=== PATIENT | female | born 1960 | race Caucasian/White ===

== ENCOUNTER 2017-09-26 19:49 | Emergency (ER) | payer MEDICARE, MEDICAID ==
[2017-09-26 20:16] VITALS: BP 117/74
--- NOTE | 2017-09-26 21:00 | EDM.PDOC ---
ED HPI GENERAL MEDICAL PROBLEM - General Chief Complaint: Lower Extremity Injury/Pain Stated Complaint: COLOR OF LEGS Time Seen by Provider: 09/26/17 21:00 Source of Information: Reports: Patient History Limitations: Reports: No Limitations - History of Present Illness INITIAL COMMENTS - FREE TEXT/NARRATIVE: pt arrived with some swelling in the left leg. 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 The last time was 6 years ago, Onset: Gradual, Other ( Pt has been spending alot of time cleaning a big old house and has been on her feet alot. ) Duration: Day(s):, Getting Worse Location: Reports: Lower Extremity, Left Associated Symptoms: Reports: Other ( no sob. ) - Related Data Allergies Allergy/AdvReac Type Severity Reaction Status Date / Time metformin AdvReac Diarrhea Verified 05/09/16 07:09 Home Meds: Home Meds Acetaminophen [Tylenol Extra Strength] 1,000 mg PO Q12H 12/05/15 [History] Cholecalciferol (Vitamin D3) [Vitamin D3] 1,000 units PO DAILY 12/05/15 [History ] FLUoxetine [PROzac] 20 mg PO DAILY 12/05/15 [History] Gabapentin [Neurontin] 600 mg PO DAILY 12/05/15 [History] Gabapentin [Neurontin] 900 mg PO BEDTIME 12/05/15 [History] Hydrochlorothiazide 12.5 mg PO DAILY 12/05/15 [History] Metoprolol Tartrate 100 mg PO BID 12/05/15 [History] atorvaSTATin [Lipitor] 40 mg PO BEDTIME 12/05/15 [History] Acetaminophen [Tylenol] 650 mg PO Q4H PRN #0 tablet 12/20/15 [Rx] Lisinopril 40 mg PO BEDTIME 12/22/15 [History] Warfarin [Coumadin] 1 mg PO MOFR 12/22/15 [History] Warfarin [Coumadin] 2 mg PO SUTUWETHSA 12/22/15 [History] Levothyroxine Sodium [Synthroid] 125 mcg PO DAILY 05/09/16 [History] Dapagliflozin Propanediol [Farxiga] 10 mg PO DAILY 05/10/16 [History] Exenatide Microspheres [Bydureon Pen] 2 mg IM WEEKLY 09/26/17 [History] Past Medical History HEENT History: Reports: Impaired Vision, Sinusitis Cardiovascular History: Reports: Aneurysm, Bypass, High Cholesterol, Hypertension, PVD, Stents Respiratory History: Reports: Asthma Gastrointestinal History: Reports: Colon Polyp, GERD, Hiatal Hernia Other Gastrointestinal History: ABD HERNIA Genitourinary History: Reports: Diabetic Nephropathy, Renal Calculus CAFETERIA 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: Musculoskeletal History: Reports: Arthritis, Fibromyalgia, Neck Pain, Chronic Neurological History: Reports: Neuropathy, Diabetic Psychiatric History: Reports: Anxiety, Depression Endocrine/Metabolic History: Reports: Diabetes, Type II, Hypothyroidism, Obesity /BMI 30+ Hematologic History: Reports: None Immunologic History: Reports: None Oncologic (Cancer) History: Reports: Thyroid Dermatologic History: Reports: None - Infectious Disease History Infectious Disease History: Reports: Chicken Pox, MRSA, Mumps - Past Surgical History Head Surgeries/Procedures: Reports: None HEENT Surgical History: Reports: Oral Surgery Cardiovascular Surgical History: Reports: AAA Repair, Aneurysm, Coronary Artery Stent, Vascular Surgery Respiratory Surgical History: Reports: None GI Surgical History: Reports: Cholecystectomy, Colonoscopy, EGD, Smita Fundoplication, Other (See Below) Female Surgical History: Reports: Tubal Ligation Endocrine Surgical History: Reports: Thyroid Biopsy, Thyroidectomy Other Oncologic Surgeries/Procedures: current Dermatological Surgical History: Reports: None Social & Family History - Family History Family Medical History: Noncontributory HEENT: Reports: Cataract, Impaired Vision Cardiac: Reports: Hypertension, [place] Respiratory: Reports: None GI: Reports: Cholelithiasis : Reports: None OBGYN: Reports: Musculoskeletal: Reports: Fibromyalgia Neurological: Reports: Other (See Below) Other Neurological Family History: SISTER WITH EPILEPSY Psychiatric: Reports: None Endocrine/Metabolic: Reports: Diabetes, type II Hematologic: Reports: None Immunologic: Reports: None Dermatologic: Reports: None Oncologic: Reports: None - Tobacco Use Smoking Status *Q: Current Every Day Smoker Years of Tobacco use: 45 Packs/Tins Daily: 1 Used Tobacco, but Quit: No Month Tobacco Last Used: NOVEMBER Second Hand Smoke Exposure: Yes - Caffeine Use Caffeine Use: Reports: Coffee - Alcohol Use Days Per Week of Alcohol Use: 0 - Recreational Drug Use Recreational Drug Use: No Review of Systems - Review of Systems Review Of Systems: See Below Constitutional: Reports: No Symptoms Eyes: Reports: No Symptoms Ears: Reports: No Symptoms Nose: Reports: No Symptoms Mouth/Throat: Reports: No Symptoms Respiratory: Reports: No Symptoms Cardiovascular: Reports: No Symptoms GI/Abdominal: Reports: No Symptoms Musculoskeletal: Reports: Other ( swelling of the left leg. ) Skin: Reports: No Symptoms Neurological: Reports: No Symptoms ED EXAM, GENERAL - Physical Exam Exam: See Below Free Text/Narrative:: pt has slight redness and very slight swelling in the left lower leg. Exam Limited By: No Limitations General Appearance: Alert, No Apparent Distress, Anxious Ears: Normal TMs Nose: Normal Inspection Throat/Mouth: Normal Inspection Head: Atraumatic Neck: Normal Inspection Respiratory/Chest: No Respiratory Distress Cardiovascular: Regular Rate, Rhythm GI/Abdominal: Soft, Non-Tender (Female) Exam: Deferred Rectal (Female) Exam: Deferred Back Exam: Normal Inspection Extremities: Other (pt has slight edema in the left lower She has mild calf tenderness. She has a normal Ddimer. Her us of her leg is neg. .) Neurological: Alert, Oriented, Normal Cognition Psychiatric: Normal Affect Course - Vital Signs Last Recorded V/S: Last Vital Signs Temp 36.5 C 09/26/17 20:15 Pulse 73 09/26/17 20:15 Resp 16 09/26/17 20:15 BP 117/74 09/26/17 20:15 Pulse Ox 94 L 09/26/17 20:15 - Orders/Labs/Meds Orders: Active Orders 24 hr Category Date Time Status VL Duplex Lwr Ext Veins Ltd Lt [US] Stat Exams 09/26/17 20:58 Ordered Labs: Laboratory Tests 09/26/17 09/26/17 Range/Units 21:00 21:00 WBC 8.6 (4.5-11.0) K/uL RBC 4.68 (3.30-5.50) M/uL Hgb 15.1 H (12.0-15.0) g/dL Hct 42.9 (36.0-48.0) % MCV 92 (80-98) fL MCH 32 H (27-31) pg MCHC 35 (32-36) % Plt Count 256 (150-400) K/uL Neut % (Auto) 59 (36-66) % Lymph % (Auto) 30 (24-44) % [place] % (Auto) 8 H (2-6) % Eos % (Auto) 2 (2-4) % Baso % (Auto) 0 (0-1) % D-Dimer, Quantitative 341 (0.0-400.0) ng/mL - Re-Assessments/Exams Free Text/Narrative Re-Assessment/Exam: 09/26/17 22:11 Us of the leg was neg. Departure - Departure Time of Disposition: 22:12 Disposition: Home, Self-Care 01 Condition: Fair Clinical Impression: Edema of left lower extremity - Discharge Information Referrals: Ino Lopez Sr, MD [Primary Care Provider] - Forms: ED Department Discharge Care Plan Goals: avoid being on her feet so much, cont coumadin, tylenol for discomfort. - My Orders Last 24 Hours: My Active Orders 09/26/17 20:58 VL Duplex Lwr Ext Veins Ltd Lt [US] Stat - Assessment/Plan Last 24 Hours: My Active Orders 09/26/17 20:58 VL Duplex Lwr Ext Veins Ltd Lt [US] Stat
--- NOTE | 2017-09-29 10:03 | US ---
No DVT within the deep venous system.
== END 2017-09-26 22:27 | disposition home or self-care (01) ==
LOC: JP.ED 19:49
DX: R60.0 Localized edema (principal); I10 Essential (primary) hypertension; E11.21 Type 2 diabetes mellitus with diabetic nephropathy; E03.9 Hypothyroidism, unspecified; E78.00 Pure hypercholesterolemia, unspecified; E11.40 Type 2 diabetes mellitus with diabetic neuropathy, unspecified; Z88.8 Allergy status to other drugs, medicaments and biological substances; Z79.01 Long term (current) use of anticoagulants; Z79.899 Other long term (current) drug therapy; F17.210 Nicotine dependence, cigarettes, uncomplicated
CPT/HCPCS: 36415; 85025; 85379; 93971-26-LT; 93971-LT; 99283; 99284-25

== ENCOUNTER 2020-02-25 17:57 | Emergency (ER) | payer MEDICARE, MEDICAID ==
--- NOTE | 2020-02-25 19:58 | EDM.PDOC ---
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 The patient's symptoms worsened today and she decided to come into the ED. She has a poor appetite. She has been getting some fluids and however not as much as usual. She has increased thirst. She denies increased urination. Her stools have been loose but only once or twice a day. She denies any blood. She has had a cholecystectomy in the past. She still has her appendix and uterus. She denies alcohol use, THC and street drug use. Lower Abdomen Pain Score (Numeric/FACES): 7 - Related Data Allergies Allergy/AdvReac Type Severity Reaction Status Date / Time cyclobenzaprine Allergy Dizziness Verified 02/25/20 19:18 [From Flexeril] tizanidine Allergy Dizziness Verified 02/25/20 19:18 metformin AdvReac Diarrhea Verified 02/25/20 19:18 Home Meds: Home Meds Cholecalciferol (Vitamin D3) [Vitamin D3] 1,000 units PO DAILY 12/05/15 [History] FLUoxetine [PROzac] 20 mg PO DAILY 12/05/15 [History] Metoprolol Tartrate 100 mg PO BID 12/05/15 [History] atorvaSTATin [Lipitor] 40 mg PO BEDTIME 12/05/15 [History] hydroCHLOROthiazide [Hydrochlorothiazide] 12.5 mg PO DAILY 12/05/15 [History] Acetaminophen [Tylenol] 650 mg PO Q4H PRN #0 tablet 12/20/15 [Rx] Lisinopril 40 mg PO BEDTIME 12/22/15 [History] Levothyroxine Sodium [Synthroid] 125 mcg PO DAILY 05/09/16 [History] Dapagliflozin Propanediol [Farxiga] 10 mg PO DAILY 05/10/16 [History] Exenatide Microspheres [Bydureon Pen] 2 mg IM WEEKLY 09/26/17 [History] Gabapentin [Neurontin] 400 mg PO DAILY 01/19/19 [History] Gabapentin [Neurontin] 800 mg PO BEDTIME 02/25/20 [History] Warfarin [Coumadin] 2 mg PO DAILY 02/25/20 [History] Past Medical History HEENT History: Reports: Impaired Vision, Sinusitis Cardiovascular History: Reports: Aneurysm, Bypass, High Cholesterol, Hypertension, PVD, Stents Respiratory History: Reports: Asthma Gastrointestinal History: Reports: Colon Polyp, GERD, Hiatal Hernia Other Gastrointestinal History: ABD HERNIA Genitourinary History: Reports: Diabetic Nephropathy, 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: Musculoskeletal History: Reports: Arthritis, Fibromyalgia, Neck Pain, Chronic Neurological History: Reports: Neuropathy, Diabetic Psychiatric History: Reports: Anxiety, Depression Endocrine/Metabolic History: Reports: Diabetes, Type II, Hypothyroidism, Obesity/BMI 30+ Hematologic History: Reports: None Immunologic History: Reports: None Oncologic (Cancer) History: Reports: Thyroid Dermatologic History: Reports: None - Infectious Disease History Infectious Disease History: Reports: Chicken Pox, Measles, Mumps - Past Surgical History HEENT Surgical History: Reports: Oral Surgery Cardiovascular Surgical History: Reports: AAA Repair, Aneurysm, Coronary Artery Stent, Vascular Surgery GI Surgical History: Reports: Cholecystectomy, Colonoscopy, EGD, Smita Fundopl ication, Other (See Below) Female Surgical History: Reports: Tubal Ligation Endocrine Surgical History: Reports: Thyroid Biopsy, Thyroidectomy Other Oncologic Surgeries/Procedures: current Dermatological Surgical History: Reports: None Social & Family History - Family History Family Medical History: Noncontributory HEENT: Reports: Cataract, Impaired Vision Cardiac: Reports: Hypertension, [place] Respiratory: Reports: None GI: Reports: Cholelithiasis : Reports: None OBGYN: Reports: Musculoskeletal: Reports: Fibromyalgia Neurological: Reports: Other (See Below) Other Neurological Family History: SISTER WITH EPILEPSY Psychiatric: Reports: None Endocrine/Metabolic: Reports: Diabetes, type II Hematologic: Reports: None Immunologic: Reports: None Dermatologic: Reports: None Oncologic: Reports: None - Tobacco Use Smoking Status *Q: Current Every Day Smoker Years of Tobacco use: 45 Packs/Tins Daily: 0.5 Used Tobacco, but Quit: No Second Hand Smoke Exposure: Yes - Caffeine Use Caffeine Use: Reports: Coffee - Recreational Drug Use Recreational Drug Use: No ED ROS GENERAL - Review of Systems Review Of Systems: See Below Constitutional: Reports: Fever, Chills HEENT: Reports: No Symptoms Respiratory: Reports: No Symptoms Cardiovascular: Reports: No Symptoms Endocrine: Denies: Polydypsia, Polyuria GI/Abdominal: Reports: Abdominal Pain, Diarrhea, Decreased Appetite, Nausea, Vomiting : Reports: No Symptoms Skin: Reports: No Symptoms Neurological: Reports: No Symptoms ED EXAM, GI/ABD - Physical Exam Exam: See Below Exam Limited By: Altered Mental Status General Appearance: Alert, WD/WN, Moderate Distress, Other (Mucous membranes are moist skin turgor is decreased. Central capillary refill is decreased as well. Her heart rate is in the mid 90s. Respirations are normal. She appears mildlymoderately dehydrated.) Eyes: Bilateral: Normal Appearance (No scleral icterus.) Nose: Normal Inspection Throat/Mouth: Normal Inspection Neck: Normal Inspection, Supple, Non-Tender Respiratory/Chest: No Respiratory Distress, Lungs Clear, Normal Breath Sounds, Chest Non-Tender Cardiovascular: Normal Peripheral Pulses, Regular Rate, Rhythm, No Gallop, No Murmur GI/Abdominal Exam: Normal Bowel Sounds (She has guarding right lower quadrant. She also has some rigidity. Bowel sounds are normal in all quadrants. No masses were noted. She has tenderness percussion particular on the right side.) Extremities: Normal Inspection, Normal Range of Motion Neurological: Alert, Oriented, Normal Cognition Skin Exam: No: Jaundice Course - Vital Signs Text/Narrative:: This patient presents to the emergency department with several day history of fever, chills, nausea, vomiting and diarrhea. She also has abdominal pain. Her symptoms worsened today with the pain. Her vital signs are stable. Her abdomen was tender on palpation. CT scan of the abdomen pelvis with contrast shows a splenic infarct. Her labs reveal elevated transaminase and lipase. Her bilirubin is slightly elevated. INR is pending. Chest x-ray appears normal by my interpretation. ECG shows no acute is by my interpretation. COVID-19 test is pending. The patient is hypokalemic at 3.0 and was given supplemental potassium. She was given IV fluids, fentanyl and Zofran for pain. The case was discussed with Dr. Singh a hospitalist at [facility] and he accepted the patient transfer. 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 The patient is hemodynamically stable. Her CODE STATUS is full. She agrees with this plan. She is being transported to [place] by [facility]. Last Recorded V/S: Last Vital Signs Temp 36.1 C 02/25/20 19:33 Pulse 88 02/25/20 21:33 Resp 16 02/25/20 21:33 BP 118/59 L 02/25/20 21:33 Pulse Ox 91 L 02/25/20 21:33 - Orders/Labs/Meds Orders: Active Orders 24 hr Category Date Time Status EKG Documentation Completion [RC] ASDIRECTED Care 02/25/20 20:07 Active CORONAVIRUS COVID-19, MEE Stat Lab 02/25/20 22:38 Ordered INR,PT,PROTHROMBIN TIME [COAG] Stat Lab 02/25/20 22:35 Ordered LACTIC ACID [CHEM] Stat Lab 02/25/20 22:25 Ordered Iopamidol [Isovue-300 (61%)] Med 02/25/20 20:45 Active 115 ml IV . DIRECTED Potassium Chloride [KCL 20 MEQ in Water 100 ML] 20 meq Med 02/25/20 22:25 Ordered Premix Bag 1 bag IV ONETIME Sodium Chloride 0.9% [Normal Saline] 1,000 ml Med 02/25/20 20:15 Active IV ASDIRECTED Sodium Chloride 0.9% [Normal Saline] 1,000 ml Med 02/25/20 22:45 Ordered IV ASDIRECTED Sodium Chloride 0.9% [Normal Saline] 80 ml Med 02/25/20 20:45 Active IV ASDIRECTED Sodium Chloride 0.9% [Saline Flush] Med 02/25/20 20:35 Active 10 ml FLUSH ASDIRECTED PRN EKG 12 Lead [EK] Stat Ther 02/25/20 20:06 Ordered Medication Orders Sodium Chloride (Normal Saline) 1,000 mls @ 1,000 mls/hr IV ASDIRECTED [facility] Last Admin: 02/25/20 20:34 Dose: 1,000 mls/hr Documented by: ALEK Sodium Chloride (Normal Saline) 80 mls @ 3 mls/sec IV ASDIRECTED EVIE Last Admin: 02/25/20 20:58 Dose: 3 mls/sec Documented by: PADMINI Potassium Chloride 20 meq/ (Premix) 100 mls @ 50 mls/hr IV ONETIME ONE Stop: 02/26/20 00:24 Last Admin: 02/25/20 22:51 Dose: 50 mls/hr Documented by: SHAVON Sodium Chloride (Normal Saline) 1,000 mls @ 1,000 mls/hr IV ASDIRECTED EVIE Iopamidol (Isovue-300 (61%)) 115 ml IV . DIRECTED EVIE Last Admin: 02/25/20 20:57 Dose: 115 ml Documented by: PADMINI Sodium Chloride (Saline Flush) 10 ml FLUSH ASDIRECTED PRN PRN Reason: Keep Vein Open Last Admin: 02/25/20 20:58 Dose: 10 ml Documented by: PADMINI Labs: Laboratory Tests 02/25/20 02/25/20 02/25/20 Range/Units 20:23 20:23 20:53 WBC 8.8 (4.5-11.0) K/uL RBC 4.89 (3.30-5.50) M/uL Hgb 15.3 H (12.0-15.0) g/dL Hct 42.7 (36.0-48.0) % MCV 87 (80-98) fL MCH 31 (27-31) pg MCHC 36 (32-36) % Plt Count 90 L (150-400) K/uL Neut % (Auto) 84 H (36-66) % Lymph % (Auto) 11 L (24-44) % [place] % (Auto) 5 (2-6) % Eos % (Auto) 0 L (2-4) % Baso % (Auto) 1 (0-1) % Sodium 128 L (140-148) mmol/L Potassium 3.0 L (3.6-5.2) mmol/L Chloride 90 L (100-108) mmol/L Carbon Dioxide 27 (21-32) mmol/L Anion Gap 14.0 (5.0-14.0) mmol/L BUN 16 (7-18) mg/dL Creatinine 0.9 (0.6-1.0) mg/dL Est Cr Clr Drug Dosing 56.68 mL/min Estimated GFR (MDRD) > 60 (>60) Glucose 110 H (74-106) mg/dL Calcium 8.2 L (8.5-10.1) mg/dL Total Bilirubin 1.4 H (0.2-1.0) mg/dL AST 103 H (15-37) U/L ALT 114 H (12-78) U/L Alkaline Phosphatase 171 H (46-116) U/L C-Reactive Protein 17.90 H (0.0-0.3) mg/dL Total Protein 6.8 (6.4-8.2) g/dL Albumin 2.5 L (3.4-5.0) g/dL Globulin 4.3 H (2.3-3.5) g/dL Albumin/Globulin Ratio 0.6 L (1.2-2.2) Lipase 151 (73-393) U/L Urine Color Yellow (YELLOW) Urine Appearance Slightly cloudy A (CLEAR) Urine pH 6.0 (5.0-8.0) Ur Specific [place] 1.025 (1.008-1.030) Urine Protein 100 H (NEGATIVE) mg/dL Urine Glucose (UA) 500 H (NEGATIVE) mg/dL Urine Ketones 40 H (NEGATIVE) mg/dL Urine Occult Blood Small H (NEGATIVE) Urine Nitrite Negative (NEGATIVE) Urine Bilirubin Small H (NEGATIVE) Urine Urobilinogen 0.2 (0.2-1.0) EU/dL Ur Leukocyte Esterase Negative (NEGATIVE) Urine RBC 0-5 (0-5) Urine WBC 0-5 (0-5) Ur Epithelial Cells Few Amorphous Sediment Few Urine Bacteria Few Urine Mucus Not seen Urine Other See note Meds: Medications Generic Name Dose Route Start Last Admin Trade Name Jonah PRN Reason Stop Dose Admin Sodium Chloride 1,000 mls @ 1,000 mls/hr 02/25/20 20:15 02/25/20 20:34 Normal Saline IV 1,000 mls/hr ASDIRECTED EVIE Administration Sodium Chloride 80 mls @ 3 mls/sec 02/25/20 20:45 02/25/20 20:58 Normal Saline IV 3 mls/sec ASDIRECTED EVIE Administration Potassium Chloride 20 meq/ 100 mls @ 50 mls/hr 02/25/20 22:25 02/25/20 22:51 Premix IV 02/26/20 00:24 50 mls/hr ONETIME ONE Administration Sodium Chloride 1,000 mls @ 1,000 mls/hr 02/25/20 22:45 Normal Saline IV ASDIRECTED EVIE Iopamidol 115 ml 02/25/20 20:45 02/25/20 20:57 Isovue-300 (61%) IV 115 ml . DIRECTED EVIE Administration Sodium Chloride 10 ml 02/25/20 20:35 02/25/20 20:58 Saline Flush FLUSH 10 ml ASDIRECTED PRN Administration Keep Vein Open Discontinued Medications Generic Name Dose Route Start Last Admin Trade Name Freq PRN Reason Stop Dose Admin Fentanyl 50 mcg 02/25/20 19:59 02/25/20 20:36 Sublimaze IVPUSH 02/25/20 20:00 50 mcg ONETIME ONE Administration Lidocaine HCl 2 ml 02/25/20 22:41 02/25/20 22:52 Xylocaine-Mpf 1% INJECT 02/25/20 22:42 2 ml ONETIME ONE Administration Lidocaine HCl Confirm 02/25/20 22:38 02/25/20 22:52 Xylocaine-Mpf 1% Administered 02/25/20 22:39 Not Given Dose 5 ml .ROUTE .STK-MED ONE Ondansetron HCl 4 mg 02/25/20 20:00 02/25/20 20:35 Zofran IVPUSH 02/25/20 20:01 4 mg ONETIME ONE Administration Departure - Departure Time of Disposition: 22:53 Disposition: DC/Tfer to Acute Hospital 02 Condition: Good Clinical Impression: Splenic infarct - Discharge Information *PRESCRIPTION DRUG MONITORING PROGRAM REVIEWED*: No *COPY OF PRESCRIPTION DRUG MONITORING REPORT IN PATIENT EDISON: No Referrals: PCP,None [Primary Care Provider] - Forms: ED Department Discharge Care Plan Goals: Transfer to [facility] Sepsis Event Note (ED) - Evaluation Sepsis Screening Result: Possible Sepsis Risk - Focused Exam Vital Signs: Vital Signs Temp Pulse Resp BP Pulse Ox 02/25/20 21:33 88 16 118/59 L 91 L 02/25/20 20:25 90 16 131/59 L 93 L 02/25/20 19:33 36.1 C 100 22 H 129/64 98 02/25/20 18:59 36.1 C 100 22 H 129/64 98 - My Orders Last 24 Hours: My Active Orders 02/25/20 20:06 EKG 12 Lead [EK] Stat 02/25/20 20:07 EKG Documentation Completion [RC] ASDIRECTED 02/25/20 20:15 Sodium Chloride 0.9% [Normal Saline] 1,000 ml IV ASDIRECTED 02/25/20 20:35 Sodium Chloride 0.9% [Saline Flush] 10 ml FLUSH ASDIRECTED PRN 02/25/20 20:45 Iopamidol [Isovue-300 (61%)] 115 ml IV . DIRECTED Sodium Chloride 0.9% [Normal Saline] 80 ml IV ASDIRECTED 02/25/20 22:25 LACTIC ACID [CHEM] Stat Potassium Chloride [KCL 20 MEQ in Water 100 ML] 20 meq Premix Bag 1 bag IV ONETIME 02/25/20 22:35 INR,PT,PROTHROMBIN TIME [COAG] Stat 02/25/20 22:38 CORONAVIRUS COVID-19, MEE Stat 02/25/20 22:45 Sodium Chloride 0.9% [Normal Saline] 1,000 ml IV ASDIRECTED - Assessment/Plan Last 24 Hours: My Active Orders 02/25/20 20:06 EKG 12 Lead [EK] Stat 02/25/20 20:07 EKG Documentation Completion [RC] ASDIRECTED 02/25/20 20:15 Sodium Chloride 0.9% [Normal Saline] 1,000 ml IV ASDIRECTED 02/25/20 20:35 Sodium Chloride 0.9% [Saline Flush] 10 ml FLUSH ASDIRECTED PRN 02/25/20 20:45 Iopamidol [Isovue-300 (61%)] 115 ml IV . DIRECTED Sodium Chloride 0.9% [Normal Saline] 80 ml IV ASDIRECTED 02/25/20 22:25 LACTIC ACID [CHEM] Stat Potassium Chloride [KCL 20 MEQ in Water 100 ML] 20 meq Premix Bag 1 bag IV ONETIME 02/25/20 22:35 INR,PT,PROTHROMBIN TIME [COAG] Stat 02/25/20 22:38 CORONAVIRUS COVID-19, MEE Stat 02/25/20 22:45 Sodium Chloride 0.9% [Normal Saline] 1,000 ml IV ASDIRECTED
[2020-02-25] MEDS ORDERED: fentaNYL 100 MCG/2 ML SDV IVPUSH ONE (19:59)
[2020-02-25] MEDS ORDERED: Ondansetron 4 MG/2 ML SDV IVPUSH ONE (20:00)
[2020-02-25] MEDS ORDERED: Sodium Chloride 0.9% 1,000 ML IV SCH ×2 (20:15→22:45)
[2020-02-25] MEDS ORDERED: Sodium Chloride 0.9% 10 ML Syringe FLUSH PRN (20:35)
[2020-02-25] MEDS ORDERED: Iopamidol 612 MG/ML 150 ML Bottle IV SCH (20:45)
[2020-02-25] MEDS ORDERED: Sodium Chloride 0.9% 80 ML IV SCH (20:45)
--- NOTE | 2020-02-25 21:39 | CRLCR ---
HISTORY: Fever. TECHNIQUE: One view of the chest. COMPARISON: 12/13/2015. FINDINGS: There is platelike opacity within the left lung adjacent to the left heart border likely reflecting an area platelike atelectasis. The right lung appears clear of focal opacity. No pneumothorax or pleural effusion. Cardiac size within normal limits. IMPRESSION: Platelike opacity within the left lung adjacent to the left heart border likely reflecting platelike atelectasis. Dictated by Roney Malloy MD @ 02/25/2020 9:36:31 PM Dictated by: Roney Malloy MD @ 02/25/2020 21:36:38 (Electronically Signed)
--- NOTE | 2020-02-25 21:47 | CRLCT ---
HISTORY: Right lower quadrant abdominal pain. TECHNIQUE: Intravenous contrast enhanced CT of the abdomen and pelvis. 150 mL of Isovue-300 intravenous contrast was administered. COMPARISON: Ultrasound 05/26/2019. FINDINGS: There is no liver mass. Mild prominence of the biliary system may relate to postcholecystectomy reservoir effect. There are a few areas of decreased wedge-shaped splenic attenuation which likely reflect areas of splenic infarction. Underlying splenomegaly is present. Mild thickening/lobulated the adrenal glands. No focal pancreatic abnormality or acute peripancreatic inflammatory change. - On the left, there are several mildly complex cystic renal lesions. One at the superior pole of the kidney measures approximately 9.1 cm in size with thin septal calcifications. There are several cystic lesions at the inferior pole of the left kidney including one which demonstrates some peripheral wall calcifications. Given the mild complexity, imaging surveillance is recommended. No corrie nodularity is seen. On the right, there are multiple fluid density renal lesions which likely represent cysts. Bilaterally, there are sub cm low-density renal lesions which are too small to characterize but could represent small cysts. There is no right-sided no hydronephrosis. No obstructive urinary calculus. Urinary bladder is nondistended. - No small bowel obstruction. No appendicitis. No diverticulitis. - There are several wide-mouth ventral abdominal wall hernias. - There is an abdominal aortic graft which appears patent. - Areas of platelike atelectasis and/or scarring within the lung bases. - Degenerative changes of the spine. No acute fractures. IMPRESSION: 1. Small areas of splenic infarction in the setting of splenomegaly. 2. No appendicitis, bowel obstruction or diverticulitis. 3. Prior cholecystectomy. Dilatation of the biliary system may relate to postcholecystectomy reservoir effect. 4. Several mildly complex cystic left renal lesions with wall and septal calcifications. While these may reflect mildly complex cysts, imaging surveillance with renal CT is recommended for these mildly complex cystic lesions. 5. Patent abdominal aortic graft. 6. Several wide-mouth ventral abdominal wall hernias. Dictated by Roney Malloy MD @ 02/25/2020 9:46:32 PM Please note that all CT scans at this facility use dose modulation, iterative reconstruction, and/or weight-based dosing when appropriate to reduce radiation dose to as low as reasonably achievable. Dictated by: Roney Malloy MD @ 02/25/2020 21:46:37 (Electronically Signed)
[2020-02-25] MEDS ORDERED: Potassium Chloride 20 MEQ in Premix Bag 1 BAG IV ONE (22:25)
[2020-02-25 23:03] VITALS: BP 119/78; PULSE 103
== END 2020-02-25 23:37 ==
LOC: JP.ED 17:57
DX: D73.5 Infarction of spleen (principal); I10 Essential (primary) hypertension; E66.9 Obesity, unspecified; Z68.28 Body mass index [BMI] 28.0-28.9, adult; E03.9 Hypothyroidism, unspecified; E11.51 Type 2 diabetes mellitus with diabetic peripheral angiopathy without gangrene; E11.21 Type 2 diabetes mellitus with diabetic nephropathy; E78.00 Pure hypercholesterolemia, unspecified; E11.40 Type 2 diabetes mellitus with diabetic neuropathy, unspecified; F41.9 Anxiety disorder, unspecified; F32.9 Major depressive disorder, single episode, unspecified; Z79.01 Long term (current) use of anticoagulants; Z88.8 Allergy status to other drugs, medicaments and biological substances; Z79.899 Other long term (current) drug therapy; Z95.5 Presence of coronary angioplasty implant and graft; Z79.84 Long term (current) use of oral hypoglycemic drugs
CPT/HCPCS: 36415; 71045; 74177; 80053; 81001; 83605; 83690; 85025; 85610; 86140; 93005; 96361; 96365; 96375; 99285; J2001; J2405; J3010; J3480; J7030; J7050; Q9967; U0002

== ENCOUNTER 2021-02-24 19:53 | Emergency (ER) | payer MEDICARE, MEDICAID ==
[2021-02-24 20:12] VITALS: BP 103/63; PULSE 78
--- NOTE | 2021-02-24 21:13 | EDM.PDOC ---
ED HPI GENERAL MEDICAL PROBLEM - General Chief Complaint: General Stated Complaint: LYMES? 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 Over the past few days she has had similar symptoms with but generalized body aches, possible low-grade fevers, and had 2 episodes of nausea and vomiting yesterday. No vomiting today but she wants to be checked for Lyme's and started on antibiotics today to avoid a prolonged course. She has had her Covid vaccinations. Her son thought she had a rash a few days ago but that is resolved. Some mild generalized joint discomfort, no focal inflammation or swelling. Onset: Gradual Duration: Day(s): (2 to 3 days of illness) Location: Reports: Generalized Associated Symptoms: Reports: Cough (Mild cough), Fever/Chills, Loss of Appetite, Malaise, Nausea/Vomiting, Weakness. Denies: Confusion, Chest Pain, Shortness of Breath body Pain Score (Numeric/FACES): 1 - Related Data Allergies Allergy/AdvReac Type Severity Reaction Status Date / Time cyclobenzaprine Allergy Dizziness Verified 02/24/21 20:26 [From Flexeril] tizanidine Allergy Dizziness Verified 02/24/21 20:26 metformin AdvReac Diarrhea Verified 02/24/21 20:26 Home Meds: Home Meds FLUoxetine [PROzac] 20 mg PO DAILY 12/05/15 [History] Metoprolol Tartrate 100 mg PO BID 12/05/15 [History] atorvaSTATin [Lipitor] 40 mg PO BEDTIME 12/05/15 [History] hydroCHLOROthiazide [Hydrochlorothiazide] 12.5 mg PO DAILY 12/05/15 [History] Acetaminophen [Tylenol] 650 mg PO Q4H PRN #0 tablet 12/20/15 [Rx] Lisinopril 40 mg PO BEDTIME 12/22/15 [History] Levothyroxine Sodium [Synthroid] 125 mcg PO DAILY 05/09/16 [History] Dapagliflozin Propanediol [Farxiga] 10 mg PO DAILY 05/10/16 [History] Exenatide Microspheres [Bydureon Pen] 2 mg IM WEEKLY 09/26/17 [History] Gabapentin [Neurontin] 400 mg PO DAILY 01/19/19 [History] Gabapentin [Neurontin] 800 mg PO BEDTIME 02/25/20 [History] Warfarin [Coumadin] 2 mg PO DAILY 02/25/20 [History] Past Medical History HEENT History: Reports: Impaired Vision, Sinusitis Cardiovascular History: Reports: Aneurysm, Bypass, High Cholesterol, Hypertension, PVD, Stents Respiratory History: Reports: Asthma Gastrointestinal History: Reports: Colon Polyp, GERD, Hiatal Hernia Other Gastrointestinal History: ABD HERNIA Genitourinary History: Reports: Diabetic Nephropathy, 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: Musculoskeletal History: Reports: Arthritis, Fibromyalgia, Neck Pain, Chronic Neurological History: Reports: Neuropathy, Diabetic Psychiatric History: Reports: Anxiety, Depression Endocrine/Metabolic History: Reports: Diabetes, Type II, Hypothyroidism, Obe sity/BMI 30+ Hematologic History: Reports: None Immunologic History: Reports: None Oncologic (Cancer) History: Reports: Thyroid Dermatologic History: Reports: None - Infectious Disease History Infectious Disease History: Reports: Chicken Pox, Measles, Mumps - Past Surgical History Head Surgeries/Procedures: Reports: None HEENT Surgical History: Reports: Oral Surgery Other HEENT Surgeries/Procedures: teeth extraction Cardiovascular Surgical History: Reports: AAA Repair, Aneurysm, Coronary Artery Stent, Vascular Surgery Respiratory Surgical History: Reports: None GI Surgical History: Reports: Cholecystectomy, Colonoscopy, EGD, Smita Fundoplication, Other (See Below) Other GI Surgeries/Procedures: VASCULAR BLOOD CLOTS IN ABDOMEN AND HAD SURGERY Female Surgical History: Reports: Tubal Ligation Endocrine Surgical History: Reports: Thyroid Biopsy, Thyroidectomy Neurological Surgical History: Reports: None Musculoskeletal Surgical History: Reports: None Oncologic Surgical History: Reports: None Other Oncologic Surgeries/Procedures: current Social & Family History - Family History Family Medical History: No Pertinent Family History HEENT: Reports: Cataract, Impaired Vision Cardiac: Reports: Hypertension, [place] Respiratory: Reports: None GI: Reports: Cholelithiasis : Reports: None OBGYN: Reports: Musculoskeletal: Reports: Fibromyalgia Neurological: Reports: Other (See Below) Other Neurological Family History: SISTER WITH EPILEPSY Psychiatric: Reports: None Endocrine/Metabolic: Reports: Diabetes, type II Hematologic: Reports: None Immunologic: Reports: None Dermatologic: Reports: None Oncologic: Reports: None - Tobacco Use Tobacco Use Status *Q: Current Every Day Tobacco User Years of Tobacco use: 40 Packs/Tins Daily: 0.5 - Caffeine Use Caffeine Use: Reports: Coffee - Recreational Drug Use Recreational Drug Use: No ED ROS GENERAL - Review of Systems Review Of Systems: See Below Constitutional: Reports: Fever, Chills, Malaise HEENT: Reports: No Symptoms Respiratory: Reports: Cough (Dry mild cough, no productive sputum). Denies: Shortness of Breath Cardiovascular: Denies: Chest Pain GI/Abdominal: Reports: Diarrhea (Several episodes of diarrhea over the past 2 days, none today, no vomiting today either), Nausea, Vomiting : Reports: No Symptoms Musculoskeletal: Reports: Joint Pain (Generalized mild joint pain and muscle stiffness, no objective signs), Muscle Pain Skin: Reports: Other (Some mild sunburn on the back) Neurological: Reports: Weakness. Denies: Headache ED EXAM, GENERAL - Physical Exam Exam: See Below Exam Limited By: No Limitations General Appearance: Alert, No Apparent Distress Eye Exam: Bilateral Eye: Normal Inspection Head: Atraumatic Neck: Supple, Non-Tender Respiratory/Chest: Lungs Clear Cardiovascular: Regular Rate, Rhythm. No: Tachycardia GI/Abdominal: Soft, Non-Tender Extremities: Normal Inspection, Other (No objective joint pain or swelling of the extremities) Neurological: Alert, Oriented, No Motor/Sensory Deficits Psychiatric: Normal Affect, Normal Mood Skin Exam: Warm, Dry Course - Vital Signs Last Recorded V/S: Last Vital Signs Temp 97.6 F 02/24/21 20:17 Pulse 78 02/24/21 20:17 Resp 14 02/24/21 20:17 BP 103/63 02/24/21 20:17 Pulse Ox 94 L 02/24/21 20:17 - Orders/Labs/Meds Orders: Active Orders 24 hr Category Date Time Status BABESIA MICROTI ANTIBODY PANEL Urgent Lab 02/24/21 21:00 Received HUMAN GRANULOCYTIC [facility] Urgent Lab 02/24/21 21:00 Received Labs: Laboratory Tests 02/24/21 Range/Units 21:00 Lyme Disease IgG Ab Negative (Negative) Lyme Disease IgM Ab Negative (Negative) - Re-Assessments/Exams Free Text/Narrative Re-Assessment/Exam: 02/24/21 21:11 Tick panel was drawn, patient was started on doxycycline 100 mg twice daily and the results of the test will be communicated with her in a few days. If she is improving she should finish the first 10 days of the doxycycline, if positive she may need an additional round of medication. If worsening despite treatment, she can return anytime for further evaluation. Departure - Departure Time of Disposition: 21:21 Disposition: Home, Self-Care 01 Clinical Impression: Nausea & vomiting Qualifiers: Vomiting type: unspecified Vomiting Intractability: non-intractable Qualified Code(s): R11.2 - Nausea with vomiting, unspecified Joint pain Qualifiers: Joint pain location: unspecified Qualified Code(s): M25.50 - Pain in unspecified joint - Discharge Information Instructions: Nausea and Vomiting, Adult, [id number], Joint Pain, [id number] Referrals: Ulises Tucker MD [Primary Care Provider] - Forms: ED Department Discharge Care Plan Goals: Take doxycycline twice daily starting tonight, and continue the medication until gone if improving. We will be in touch with you with your panel results as you may need more medication if positive. Return anytime if worsening despite treatment. Sepsis Event Note (ED) - Evaluation Sepsis Screening Result: No Definite Risk - Focused Exam Vital Signs: Vital Signs Temp Pulse Resp BP Pulse Ox 02/24/21 20:17 97.6 F 78 14 103/63 94 L 02/24/21 20:11 97.6 F 78 14 103/63 94 L - My Orders Last 24 Hours: My Active Orders 02/24/21 21:00 BABESIA MICROTI ANTIBODY PANEL Urgent [facility] GRANULOCYTIC [facility] Urgent - Assessment/Plan Last 24 Hours: My Active Orders 02/24/21 21:00 BABESIA MICROTI ANTIBODY PANEL Urgent [facility] GRANULOCYTIC [facility] Urgent
[2021-03-02 15:12] LABS: HGE IGG TITER Negative (Neg:<1:64); HGE IGM TITER Negative (Neg:<1:20)
== END 2021-02-24 21:21 | disposition home or self-care (01) ==
LOC: JP.ED 19:53
DX: R11.2 Nausea with vomiting, unspecified (principal); M25.50 Pain in unspecified joint; L55.9 Sunburn, unspecified; R19.7 Diarrhea, unspecified; E78.00 Pure hypercholesterolemia, unspecified; I10 Essential (primary) hypertension; E11.40 Type 2 diabetes mellitus with diabetic neuropathy, unspecified; E03.9 Hypothyroidism, unspecified; E66.9 Obesity, unspecified; Z68.27 Body mass index [BMI] 27.0-27.9, adult; Z88.1 Allergy status to other antibiotic agents; Z88.8 Allergy status to other drugs, medicaments and biological substances; Z79.01 Long term (current) use of anticoagulants; Z79.899 Other long term (current) drug therapy; Z72.0 Tobacco use
CPT/HCPCS: 86618; 86666; 86753; 99283

== ENCOUNTER 2021-02-25 09:26 | Emergency (ER) | payer MEDICARE, MEDICAID ==
[2021-02-25] MEDS ORDERED: Ketorolac 60 MG/2 ML SDV IM ONE (10:45)
[2021-02-25] MEDS ORDERED: Acetaminophen/oxyCODONE 325-5 MG Tab PO STA (10:46)
--- NOTE | 2021-02-25 10:52 | EDM.PDOC ---
ED HPI GENERAL MEDICAL PROBLEM - General Chief Complaint: Back Pain or Injury Stated Complaint: [facility] Time Seen by Provider: 02/25/21 10:35 Source of Information: Reports: Patient, Old Records, RN History Limitations: Reports: No Limitations - History of Present Illness INITIAL COMMENTS - FREE TEXT/NARRATIVE: 60 yo female presents with L buttocks pain that radiates down her L leg to nearly the knee. Sx's began a few days ago and are getting worse. No injury. Has had sciatica in the past, but not this bad. No leg numbness. 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 Tucker. 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 (last night without relief) Lower Back Pain Score (Numeric/FACES): 5 - Related Data Allergies Allergy/AdvReac Type Severity Reaction Status Date / Time cyclobenzaprine Allergy Dizziness Verified 02/25/21 09:31 [From Flexeril] tizanidine Allergy Dizziness Verified 02/25/21 09:31 metformin AdvReac Diarrhea Verified 02/25/21 09:31 Home Meds: Home Meds FLUoxetine [PROzac] 20 mg PO DAILY 12/05/15 [History] Metoprolol Tartrate 100 mg PO BID 12/05/15 [History] atorvaSTATin [Lipitor] 40 mg PO BEDTIME 12/05/15 [History] hydroCHLOROthiazide [Hydrochlorothiazide] 12.5 mg PO DAILY 12/05/15 [History] Acetaminophen [Tylenol] 650 mg PO Q4H PRN #0 tablet 12/20/15 [Rx] Lisinopril 40 mg PO BEDTIME 12/22/15 [History] Levothyroxine Sodium [Synthroid] 125 mcg PO DAILY 05/09/16 [History] Dapagliflozin Propanediol [Farxiga] 10 mg PO DAILY 05/10/16 [History] Exenatide Microspheres [Bydureon Pen] 2 mg IM WEEKLY 09/26/17 [History] Gabapentin [Neurontin] 400 mg PO DAILY 01/19/19 [History] Gabapentin [Neurontin] 800 mg PO BEDTIME 02/25/20 [History] Warfarin [Coumadin] 2 mg PO DAILY 02/25/20 [History] Doxycycline [Doxycycline Hyclate] 100 mg PO BID 02/25/21 [History] Past Medical History HEENT History: Reports: Impaired Vision, Sinusitis Cardiovascular History: Reports: Aneurysm, Bypass, High Cholesterol, Hypertension, PVD, Stents Respiratory History: Reports: Asthma Gastrointestinal History: Reports: Colon Polyp, GERD, Hiatal Hernia Other Gastrointestinal History: ABD HERNIA Genitourinary History: Reports: Diabetic Nephropathy, 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: Musculoskeletal History: Reports: Arthritis, Fibromyalgia, Neck Pain, Chronic Neurological History: Reports: Neuropathy, Diabetic Psychiatric History: Reports: Anxiety, Depression Endocrine/Metabolic History: Reports: Diabetes, Type II, Hypothyroidism, Obesity/BMI 30+ Hematologic History: Reports: None Immunologic History: Reports: None Oncologic (Cancer) History: Reports: Thyroid Dermatologic History: Reports: None - Infectious Disease History Infectious Disease History: Reports: Chicken Pox, Measles, Mumps - Past Surgical History Head Surgeries/Procedures: Reports: None HEENT Surgical History: Reports: Oral Surgery Other HEENT Surgeries/Procedures: teeth extraction Cardiovascular Surgical History: Reports: AAA Repair, Aneurysm, Coronary Artery Stent, Vascular Surgery Respiratory Surgical History: Reports: None GI Surgical History: Reports: Cholecystectomy, Colonoscopy, EGD, Smita Fundoplication, Other (See Below) Other GI Surgeries/Procedures: VASCULAR BLOOD CLOTS IN ABDOMEN AND HAD SURGERY Female Surgical History: Reports: Tubal Ligation Endocrine Surgical History: Reports: Thyroid Biopsy, Thyroidectomy Neurological Surgical History: Reports: None Musculoskeletal Surgical History: Reports: None Oncologic Surgical History: Reports: None Other Oncologic Surgeries/Procedures: current Social & Family History - Family History Family Medical History: No Pertinent Family History HEENT: Reports: Cataract, Impaired Vision Cardiac: Reports: Hypertension, [place] Respiratory: Reports: None GI: Reports: Cholelithiasis : Reports: None OBGYN: Reports: Musculoskeletal: Reports: Fibromyalgia Neurological: Reports: Other (See Below) Other Neurological Family History: SISTER WITH EPILEPSY Psychiatric: Reports: None Endocrine/Metabolic: Reports: Diabetes, type II Hematologic: Reports: None Immunologic: Reports: None Dermatologic: Reports: None Oncologic: Reports: None - Tobacco Use Tobacco Use Status *Q: Current Every Day Tobacco User Years of Tobacco use: 45 Packs/Tins Daily: 0.5 - Caffeine Use Caffeine Use: Reports: Coffee - Recreational Drug Use Recreational Drug Use: No ED ROS GENERAL - Review of Systems Review Of Systems: See Below Constitutional: Reports: No Symptoms Musculoskeletal: Reports: Other (L buttocks pain going down her leg) Skin: Reports: No Symptoms Neurological: Reports: Other (pain radiating down her L leg) Psychiatric: Reports: No Symptoms ED EXAM,LOWER BACK PAIN/INJURY - Physical Exam Exam: See Below Exam Limited By: No Limitations General Appearance: Alert, WD/WN, No Apparent Distress Back Exam: Normal Inspection. No: CVA Tenderness (R), CVA Tenderness (L), Paraspinal Tenderness, Vertebral Tenderness Extremities: Normal Inspection, Normal Range of Motion, Non-Tender, No Pedal Edema, Other (pain L sciatic notch, straight leg positive on the L) Neurological: Alert, CN II-XII Intact, No Motor/Sensory Deficits, Oriented x 3 Psychiatric: Normal Affect, Normal Mood Skin Exam: Warm, Dry, Intact, Normal Color, No Rash Course - Vital Signs Last Recorded V/S: Last Vital Signs Temp 36.8 C 02/25/21 09:36 Pulse 78 02/25/21 10:54 Resp 14 02/25/21 09:36 BP 114/72 02/25/21 10:54 Pulse Ox 97 02/25/21 10:54 - Orders/Labs/Meds Meds: Medications Discontinued Medications Generic Name Dose Route Start Last Admin Trade Name Devq PRN Reason Stop Dose Admin Ketorolac Tromethamine 60 mg 02/25/21 10:45 02/25/21 10:54 Ketorolac 60 Mg/2 Ml Sdv IM 02/25/21 10:46 60 mg ONETIME ONE Administration Oxycodone/Acetaminophen 1 tab 02/25/21 10:46 02/25/21 10:53 Acetaminophen/Oxycodone 325-5 Mg Tab PO 02/25/21 10:47 1 tab ONETIME STA Administration - Re-Assessments/Exams Free Text/Narrative Re-Assessment/Exam: 02/25/21 11:28 Is feeling better now, OK with going home. Departure - Departure Time of Disposition: 11:35 Disposition: Home, Self-Care 01 Condition: Fair Clinical Impression: Sciatica Qualifiers: Laterality: left Qualified Code(s): M54.32 - Sciatica, left side - Discharge Information *PRESCRIPTION DRUG MONITORING PROGRAM REVIEWED*: No *COPY OF PRESCRIPTION DRUG MONITORING REPORT IN PATIENT EDISON: No Instructions: Sciatica, [id number] Referrals: PCP,None [Primary Care Provider] - Forms: ED Department Discharge Additional Instructions: Take ibuprofen 600 mg every 6 hrs with food, next dose at 5 pm today. Add either Percocet as directed OR acetaminophen 1000 mg every 6 hrs for pain relief. See your doctor later this week for recheck. Sepsis Event Note (ED) - Evaluation Sepsis Screening Result: No Definite Risk - Focused Exam Vital Signs: Vital Signs Temp Pulse Resp BP Pulse Ox 02/25/21 10:54 78 114/72 97 02/25/21 10:23 83 136/71 95 02/25/21 09:53 75 146/73 H 93 L 02/25/21 09:36 36.8 C 77 14 142/73 H 96 02/25/21 09:26 77 142/73 H 96
[2021-02-25 10:59] VITALS: BP 114/72; PULSE 78
== END 2021-02-25 11:41 | disposition home or self-care (01) ==
LOC: JP.ED 09:26
DX: M54.42 Lumbago with sciatica, left side (principal); E78.00 Pure hypercholesterolemia, unspecified; I10 Essential (primary) hypertension; E11.9 Type 2 diabetes mellitus without complications; E03.9 Hypothyroidism, unspecified; E66.9 Obesity, unspecified; Z68.28 Body mass index [BMI] 28.0-28.9, adult; Z95.1 Presence of aortocoronary bypass graft; Z88.5 Allergy status to narcotic agent; Z88.8 Allergy status to other drugs, medicaments and biological substances; Z79.01 Long term (current) use of anticoagulants; Z79.899 Other long term (current) drug therapy; Z72.0 Tobacco use
CPT/HCPCS: 96372; 99284; A9270; J1885

== ENCOUNTER 2021-10-06 21:42 | Emergency (ER) | payer MEDICARE, MEDICAID ==
[2021-10-06 22:01] VITALS: BP 120/76; PULSE 82
[2021-10-06] MEDS ORDERED: Sodium Chloride 0.9% 10 ML Syringe FLUSH PRN (22:08)
[2021-10-06] MEDS ORDERED: HYDROmorphone 0.5 MG/0.5 ML Syringe IVPUSH ONE (22:45)
[2021-10-07] MEDS ORDERED: Iopamidol 755 Mg/ML 100 ML Bottle IV STA (00:27)
[2021-10-07] MEDS ORDERED: Sodium Chloride 0.9% 75 ML IV STA (00:27)
[2021-10-07] MEDS ORDERED: Lidocaine 5% 700 MG Patch TRDERM ONE (01:18)
== END 2021-10-07 02:02 | disposition home or self-care (01) ==
LOC: JP.ED 21:42
DX: R07.89 Other chest pain (principal); E78.00 Pure hypercholesterolemia, unspecified; I10 Essential (primary) hypertension; J45.909 Unspecified asthma, uncomplicated; K21.9 Gastro-esophageal reflux disease without esophagitis; E11.9 Type 2 diabetes mellitus without complications; E03.9 Hypothyroidism, unspecified; E66.9 Obesity, unspecified; Z68.30 Body mass index [BMI] 30.0-30.9, adult; Z79.01 Long term (current) use of anticoagulants; Z88.8 Allergy status to other drugs, medicaments and biological substances; Z79.899 Other long term (current) drug therapy; Z72.0 Tobacco use
CPT/HCPCS: 36415; 71045; 71275; 74176; 80053; 85025; 85379; 86140; 96374; 99283; 99285; A9270; J1170; Q9967

== ENCOUNTER 2022-12-17 09:31 | Emergency (ER) | payer MEDICARE, MEDICAID ==
[2022-12-17 10:44] LABS: ESTIMATED GFR 29 mL/min (>60)
[2022-12-17] MEDS ORDERED: Sodium Chloride 0.9% 1,000 ML IV SCH (11:00)
[2022-12-17] MEDS ORDERED: Sodium Chloride 0.9% 1,000 ML IV ONE (12:31)
[2022-12-17] MEDS ORDERED: Pantoprazole 40 MG Vial IVPUSH ONE (13:05)
[2022-12-17] MEDS ORDERED: Loperamide 2 MG Cap PO ONE (16:10)
[2022-12-17 17:06] VITALS: BP 125/74; PULSE 70
== END 2022-12-17 17:00 | disposition home or self-care (01) ==
LOC: JP.ED 09:31
DX: E86.0 Dehydration (principal); R19.7 Diarrhea, unspecified; E78.00 Pure hypercholesterolemia, unspecified; I10 Essential (primary) hypertension; J45.909 Unspecified asthma, uncomplicated; E11.21 Type 2 diabetes mellitus with diabetic nephropathy; E03.9 Hypothyroidism, unspecified; E66.9 Obesity, unspecified; Z68.28 Body mass index [BMI] 28.0-28.9, adult; Z88.8 Allergy status to other drugs, medicaments and biological substances; Z79.899 Other long term (current) drug therapy; Z72.0 Tobacco use
CPT/HCPCS: 36415; 76705; 80053; 81001; 82150; 83690; 85025; 85610; 86140; 87493; 96361; 96374; 99284; A9270; C9113; J7030; 99283

== ENCOUNTER 2025-02-08 21:39 | Emergency (ER) | payer MEDICARE ==
[2025-02-08 21:56] VITALS: BP 194/86; PULSE 67
[2025-02-08] MEDS: methylPREDNISolone Sodium Succinate 125 MG/2 ML SDV IM ONE (22:24)
[2025-02-08] MEDS: Doxycycline 100 MG Cap PO ONE (22:25)
== END 2025-02-08 23:07 | disposition home or self-care (01) ==
LOC: JP.ED 21:39
DX: S70.361A Insect bite (nonvenomous), right thigh, initial encounter (principal); L23.7 Allergic contact dermatitis due to plants, except food; F17.200 Nicotine dependence, unspecified, uncomplicated; I10 Essential (primary) hypertension; E78.00 Pure hypercholesterolemia, unspecified; J45.909 Unspecified asthma, uncomplicated; E11.9 Type 2 diabetes mellitus without complications; E03.9 Hypothyroidism, unspecified; E66.9 Obesity, unspecified; Z90.49 Acquired absence of other specified parts of digestive tract; Z79.899 Other long term (current) drug therapy; Z79.890 Hormone replacement therapy; Z88.8 Allergy status to other drugs, medicaments and biological substances; W57.XXXA Bitten or stung by nonvenomous insect and other nonvenomous arthropods, initial encounter
CPT/HCPCS: 96372; 99282; 99283; A9270; J2919